=== PATIENT | male | born 1990 ===

== ENCOUNTER 2017-02-24 20:04 | Emergency (ER) | payer OTHER ==
[2017-02-24 20:07] VITALS: BMI 25.7
[2017-02-24 20:11] VITALS: BP 125/81; PULSE 85; RESP 17; TEMP 98.2; O2SAT 100
--- NOTE | 2017-02-24 20:32 | ED PDOC ---
Arrival/HPI - General Historian: Patient - History of Present Illness Time/Duration: 1/2 hour Symptom Onset: Sudden Symptom Course: Unchanged Quality: Stabbing Severity Level: 9 Activities at Onset: Light Context: Other (Playing basketball) <FEDE SPRING - Last Filed: 02/24/17 22:00> <Ziggy Goldstein - Last Filed: 02/24/17 22:22> - General Chief Complaint: Finger,Hand,&Wrist - History of Present Illness Narrative History of Present Illness (Text): 02/24/17 20:30 Mr. Power is a 26 year old male with a past medical history significant for hyperlipidemia who [place] [facility] [place] with a chief complaint of right index finger pain. Patient reports that 20 minutes ago he was playing basketball when his finger was "jammed" by a basketball passed to him. He states that he came immediately to the hospital and hasn't taken anything for the pain. He denies any fever, chills, chest pain, shortness of breath, abdominal pain, burning with urination, and any numbness/tingling/ weakness to any extremity. (FEDE SPRING) Past Medical History - Provider Review Nursing Documentation Reviewed: Yes - Travel History Have you recently traveled outside [place] w/in the past 3 mons?: No - Past History Past History: Non-Contributing - Infectious Disease Hx of Infectious Diseases: None - Cardiac Hx Cardiac Disorders: Yes - Pulmonary Hx Respiratory Disorders: No - Neurological Hx Neurological Disorder: No - HEENT Hx HEENT Disorder: No - Renal Hx Renal Disorder: No - Endocrine/Metabolic Hx Endocrine Disorders: No - Hematological/Oncological Hx Blood Disorders: No - Integumentary Hx Dermatological Disorder: No - Musculoskeletal/Rheumatological Hx Fractures: No - Genitourinary/Gynecological Hx Genitourinary Disorders: No - Psychiatric Hx Psychophysiologic Disorder: No Hx Substance Use: No - Anesthesia Hx Anesthesia: No <FEDE SPRING - Last Filed: 02/24/17 22:00> Family/Social History - Physician Review Nursing Documentation Reviewed: Yes Family/Social History: Other (High cholesterol) Smoking Status: Never Smoked Hx Alcohol Use: No Hx Substance Use: No <FEDE SPRING - Last Filed: 02/24/17 22:00> Allergies/Home Meds <FEDE SPRING - Last Filed: 02/24/17 22:00> <Ziggy Goldstein - Last Filed: 02/24/17 22:22> Allergies/Adverse Reactions: Allergies No Known Allergies Allergy (Verified 02/24/17 20:07) Home Medications: Home Meds Medication Instructions Recorded Confirmed Simvastatin [Zocor] 40 mg PO DAILY 02/24/17 02/24/17 Review of Systems - Physician Review All systems were reviewed & negative as marked: Yes - Review of Systems Constitutional: Normal. absent: Fevers, Night Sweats Eyes: Normal ENT: Normal Respiratory: Normal. absent: SOB Cardiovascular: Normal. absent: Chest Pain Gastrointestinal: Normal. absent: Abdominal Pain Genitourinary Male: Normal. absent: Dysuria Musculoskeletal: Other (tenderness in right second digit PIP and MCP). absent: Normal Skin: Normal Neurological: Normal Endocrine: Normal Hemo/Lymphatic: Normal Psychiatric: Normal <KJ SPRINGALL - Last Filed: 02/24/17 22:00> Physical Exam Vital Signs Reviewed: Yes Temperature: Afebrile Blood Pressure: Normal Pulse: Regular Respiratory Rate: Normal Appearance: Positive for: Well-Appearing, Non-Toxic, Uncomfortable Pain Distress: Mild Mental Status: Positive for: Alert and Oriented X 3 - Systems Exam Head: Present: Atraumatic, Normocephalic Pupils: Present: PERRL Extroacular Muscles: Present: EOMI Conjunctiva: Present: Normal Mouth: Present: Moist Mucous Membranes Neck: Present: Normal Range of Motion Respiratory/Chest: Present: Clear to Auscultation, Good Air Exchange. No: Respiratory Distress, Accessory Muscle Use Cardiovascular: Present: Regular Rate and Rhythm, Normal S1, S2, Peripheal Pulses Present. No: Murmurs, Irregular Rhythm, Tachycardic, Bradycardic Abdomen: Present: Normal Bowel Sounds, Peritoneal Signs. No: Tenderness, Distention Back: Present: Normal Inspection. No: CVA Tenderness, Midline Tenderness, Paraspinal Tenderness Upper Extremity: Present: NORMAL PULSES, Tenderness (TTP to right second digit PIP and MCP), Neurovascularly Intact, Capillary Refill < 2s, Deformity ( Angulation of right second digit at PIP joint with no avulsion or opening of skin). No: Normal Inspection, Cyanosis, Edema, Normal ROM Lower Extremity: Present: Normal Inspection, NORMAL PULSES. No: Edema, CALF TENDERNESS Neurological: Present: GCS=15, CN II-XII Intact, Speech Normal Skin: Present: Warm, Dry. No: Rashes, Normal Color Psychiatric: Present: Alert, Oriented x 3, Normal Insight, Normal Concentration <FEDE SPRING - Last Filed: 02/24/17 22:00> Vital Signs Temp Pulse Resp BP Pulse Ox 02/24/17 20:10 98.2 F 85 17 125/81 100 Medical Decision Making <FEDE SPRING - Last Filed: 02/24/17 22:00> <Ziggy Goldstein - Last Filed: 02/24/17 22:22> ED Course and Treatment: 02/24/17 20:36 Impression: 26 year old male with a past medical history significant for hyperlipidemia who presents to [place] [facility] [place] with a chief complaint of right index finger pain. Plan: -Tylenol 975mg PO stat for pain control -Right second digit x-ray pending -Reassess and disposition Prior Visits: No previous visits. 02/24/17 21:30 Patient given option of lidocaine or to undergo manual dislocation reduction without local anaesthetic. Patient chose to undergo reduction without anaesthetic. Patient tolerated well. Repeat x-ray pending. (FEDE SPRING) Patient seen and evaluated with resident. Agree with HPI, clinical findings plan and treatment. Patient is a 26 year old male who presents to the emergency department complaining of injury to right index finger while playing basketball 20 minutes prior to arrival. On exam, there is tenderness to the right 2nd digit PIP. X-ray shows dislocation of PIP joint. Reduction done with holding countertraction proximally and pulling distally on the distal finger. Post reduction X-ray shows good alignment with good range of motion. Patient stable for discharge with finger splint and f/u ortho. (Ziggy Goldstein) - RAD Interpretation Radiology Orders: 02/24/17 20:26 HAND RIGHT 2ND DIGIT (FINGER) [RAD] Stat 02/24/17 21:21 HAND RIGHT 2ND DIGIT (FINGER) [RAD] Stat - Medication Orders Current Medication Orders: Discontinued Medications Acetaminophen (Tylenol 325mg Tab) 975 mg PO ONCE STA Stop: 02/24/17 20:28 Last Admin: 02/24/17 20:52 Dose: 975 mg MAR Pain/Vitals Document 02/24/17 20:52 OCS (Rec: 02/24/17 20:52 [facility] [id number] Pain Reassessment Is This A Pain ReAssessment? Yes Sleep Is patient sleeping during reassessment? 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 / has examined the patient and agrees with the treatment plan. <Ziggy Goldstein - Last Filed: 02/24/17 22:22> Disposition/Present on Arrival - Present on Arrival Any Indicators Present on Arrival: No History of DVT/PE: No History of Uncontrolled Diabetes: No Urinary Catheter: No History of Decub. Ulcer: No History Surgical Site Infection Following: None - Disposition Have Diagnosis and Disposition been Completed?: Yes Disposition Time: 22:02 Patient Plan: Discharge <FEDE SPRING - Last Filed: 02/24/17 22:00> <Ziggy Goldstein - Last Filed: 02/24/17 22:22> - Disposition Diagnosis: Dislocation, finger, interphalangeal joint Disposition: HOME/ ROUTINE Patient Problems: Current Active Problems Problem Status Onset Dislocation, finger, interphalangeal joint Acute Condition: IMPROVED Discharge Instructions (ExitCare): Finger Dislocation (ED) Additional Instructions: Mr. Power, thank you for letting us take care of you today. Your provider was Dr. Goldstein. You were treated for finger dislocation. The emergency medical care you received today was directed at your acute symptoms. If you were prescribed any medication, please fill it and take as directed. It may take several days for your symptoms to resolve. Return to the Emergency Department if your symptoms worsen, do not improve, or if you have any other problems. Please contact your doctor or call one of the physicians/clinics you have been referred to that are listed on the Patient Visit Information form that is included in your discharge packet. Bring any paperwork you were given at discharge with you along with any medications you are taking to your follow up visit. Our treatment cannot replace ongoing medical care by a primary care provider (PCP) outside of the emergency department. PLEASE FOLLOW UP WITH DR. BRANHAM WITHIN ONE TO TWO WEEKS. HIS CONTACT INFORMATION HAS BEEN PROVIDED. Thank you for allowing the [facility] team to be part of your care today. If you had an X-Ray or CT scan: A Radiologist will review the ED reading if any change in treatment is needed we will contact you. Referrals: Rosey Navarro MD [Primary Care Provider] - Follow up with primary Donovan Branham MD [Staff Provider] - Follow up with primary Forms: [email or web address] (Albanian)
[2017-02-24] MEDS ORDERED: Lidocaine 1% Inj (20ml) IJ STA (21:05)
[2017-02-24] MEDS ORDERED: Lidocaine 1% Inj (20ml) ONE (21:20)
--- NOTE | 2017-02-25 08:10 | RAD ---
PROCEDURE: Right Hand Radiographs. HISTORY: Hand injury COMPARISON: None. FINDINGS: BONES: Normal. No fracture. JOINTS: There is a complete dislocation of the 2nd PIP joint. There is no evidence of fracture SOFT TISSUES: Normal. OTHER FINDINGS: None. IMPRESSION: There is a complete dislocation of the 2nd PIP joint. There is no evidence of fracture
--- NOTE | 2017-02-25 08:14 | RAD ---
PROCEDURE: Right Hand Radiographs. HISTORY: post readjustment COMPARISON: None. FINDINGS: BONES: Normal. No fracture. JOINTS: Normal. No osteoarthritic changes. SOFT TISSUES: Normal. OTHER FINDINGS: None. IMPRESSION: Successful reduction of 2nd PIP dislocation
== END 2017-02-24 22:36 | disposition home or self-care (01) ==
LOC: ED 20:04
DX: S63.280A Dislocation of proximal interphalangeal joint of right index finger, initial encounter (principal); W23.0XXA Caught, crushed, jammed, or pinched between moving objects, initial encounter; Y93.67 Activity, basketball; Y92.89 Other specified places as the place of occurrence of the external cause